=== PATIENT | female | born 1955 | race Two or more races ===

== ENCOUNTER 2019-08-29 23:20 | Emergency (ER) | payer SELFPAY ==
[2019-08-29] MEDS ORDERED: methylPREDNISolone NA SUCC 125 MG/2 ML VIAL ONE (23:30)
[2019-08-29] MEDS ORDERED: methylPREDNISolone NA SUCC 125 MG/2 ML VIAL IVPUSH ONE (23:49)
--- NOTE | 2019-08-29 23:51 | PDOC ---
History of Present Illness - General Chief Complaint: Allergic Reaction Stated Complaint: ALLERGIC REACTION Time Seen by Provider: 08/29/19 23:49 History Source: Patient - History of Present Illness Initial Comments: 08/30/19 03:30 Ms. Metz is a 64 y/o woman with hx fibroids, HIV (undetectable, followed by Dr. Soliz) presenting with an allergic reaction. She reports eating a miniature [employer] candy bar at home when she developed upper lip swelling, eyelid swelling, and hives on her bilateral upper extremities. She denies any shortness of breath or difficulty breathing. At home she took 50 mg benadryl, and presented to the ED when her symptoms did not resolve. She denies any known food allergies, and has had no recent changes in medications. She denies any nausea, vomiting, chills, or pain anywhere. Past History - Past Medical History Allergies/Adverse Reactions: Allergies Allergy/AdvReac Type Severity Reaction Status Date / Time Penicillins Allergy Verified 08/30/19 01:50 Home Medications: Ambulatory Orders Emtricitab/Rilpivirine/Tenofov [Complera Tablet -] 1 each PO DAILY #30 tablet Levothyroxine [Synthroid -] 150 mcg PO DAILY #30 tablet 08/03/18 Cefuroxime Axetil [Ceftin -] 500 mg PO Q12H #14 tablet 12/24/18 Emtricitab/Rilpivirine/Tenofov [Complera -] 1 each PO DAILY #30 tablet 02/08/19 Levothyroxine [Synthroid -] 150 mcg PO DAILY #30 tablet 02/08/19 Anemia: No Asthma: Yes (1 episode) Cancer: No Cardiac Disorders: No CVA: Yes (09/2015 hosp'd x 2 days, had slurred speech, all resolved) COPD: No CHF: No Dementia: No Diabetes: No GI Disorders: No Disorders: No HTN: No Hypercholesterolemia: No Liver Disease: No Seizures: No Thyroid Disease: Yes (hx goiter, stable on meds) - Psycho Social/Smoking Cessation Hx Smoking History: Never smoked Have you smoked in the past 12 months: No Number of Cigarettes Smoked Daily: 0 If you are a former smoker, when did you quit?: over 40 years ago Hx Alcohol Use: Yes (infrequent social ) Drug/Substance Use Hx: No Hx Substance Use Treatment: No Review of Systems - Review of Systems Able to Perform ROS?: Yes Comments:: 08/30/19 03:35 ROS: GENERAL/CONSTITUTIONAL: No fever or chills. No weakness. HEAD, EYES, EARS, NOSE AND THROAT: Bilateral eyelid swelling. Upper lip swelling. No change in vision. No ear pain or discharge. No sore throat. CARDIOVASCULAR: No chest pain or shortness of breath RESPIRATORY: No cough, wheezing, or hemoptysis. GASTROINTESTINAL: No nausea, vomiting, diarrhea or constipation. GENITOURINARY: No dysuria, frequency, or change in urination. MUSCULOSKELETAL: No joint or muscle swelling or pain. No neck or back pain. SKIN: Hives on bilateral upper extremities. NEUROLOGIC: No headache, vertigo, loss of consciousness, or change in strength/ sensation. ENDOCRINE: No increased thirst. No abnormal weight change HEMATOLOGIC/LYMPHATIC: No anemia, easy bleeding, or history of blood clots. ALLERGIC/IMMUNOLOGIC: Hives *Physical Exam - Physical Exam Comments: 08/30/19 03:37 PE: GENERAL: Awake, alert, and fully oriented, in no acute distress HEAD: Upper lip swelling. No signs of trauma, normocephalic, atraumatic EYES: Bilateral eyelid swelling. PERRLA, EOMI, sclera anicteric, conjunctiva clear ENT: Auricles normal inspection, hearing grossly normal, nares patent, oropharynx clear without exudates. Moist mucosa NECK: Normal ROM, supple, no lymphadenopathy, JVD, or masses LUNGS: No distress, speaks full sentences, clear to auscultation bilaterally HEART: Regular rate and rhythm, normal S1 and S2, no murmurs, rubs or gallops, peripheral pulses normal and equal bilaterally. ABDOMEN: Soft, nontender, normoactive bowel sounds. No guarding, no rebound. No masses EXTREMITIES : Normal inspection, Normal range of motion, no edema. No clubbing or cyanosis NEUROLOGICAL: Cranial nerves II through XII grossly intact. Normal speech, normal gait, no focal sensorimotor deficits SKIN: Mild hives appreciated on bilateral forearms. Warm, Dry, normal turgor. ED Treatment Course - Medications Given in the ED: ED Medications Discontinued Medications Generic Name Dose Route Start Last Admin Trade Name Freq PRN Reason Stop Dose Admin Methylprednisolone Sodium Succinate 125 mg 08/29/19 23:49 08/29/19 23:51 Solu-Medrol - IVPUSH 08/29/19 23:50 125 mg ONCE ONE Administration Medical Decision Making - Medical Decision Making 08/30/19 03:39 64 F p/w allergic reaction after ingesting candy bar, no difficulty breathing or airway compromise, consistent with allergic reaction. Took 50 mg benadryl at home before presenting to ED. Plan: Epinephrine Prednisone Serial reassessment Dispo: Home pending reassessment --- Repeat physical exam - lungs CTAB, swelling significantly improved. Plan for discharge home, close PCP follow up. Discharge - Discharge Information Problems reviewed: Yes Clinical Impression/Diagnosis: Allergic reaction Qualifiers: Encounter type: initial encounter Qualified Code(s): T78.40XA - Allergy, unspecified, initial encounter Condition: Stable Disposition: HOME - Admission No - Follow up/Referral - Patient Discharge Instructions Patient Printed Discharge Instructions: DI for General Allergic Reactions Additional Instructions: You were seen in the emergency department after an allergic reaction. We gave epinephrine and steroids to help your symptoms, and the swelling improved. Please follow up with your primary care provider as soon as possible, in the next seven days. Please return to the emergency department if you develop difficulty breathing, chest pain, or if you develop any other symptoms that are concerning to you. - Post Discharge Activity Work/Back to School Note: Back to Work
[2019-08-29] MEDS ORDERED: EPINEPHrine 1:1,000 0.3 MG/0.3 ML SYR IM ONE (23:52)
[2019-08-29 23:59] VITALS: TEMP 97.3; BMI 21.5
--- NOTE | 2019-08-30 00:23 | PDOC ---
Documentation entered by Mariah Haq SCRIBE, acting as scribe for Sirena Subramanian MD. Sirena Subramanian MD: This documentation has been prepared by the Severino de la vega Brenda, SCRIBE, under my direction and personally reviewed by me in its entirety. I confirm that the documentation accurately reflects all work, treatment, procedures, and medical decision making performed by me. Attending Attestation - Resident Resident Name: Gianluca Gillette - ED Attending Attestation I have performed the following: I have examined & evaluated the patient, The case was reviewed & discussed with the resident, I agree w/resident's findings & plan, Exceptions are as noted - HPI HPI: 08/29/19 23:55 The patient is a 64 year old female, with a significant PMH of fibroids, goiter and now hypothyroidism, who presents to the emergency department with swollen lips and eyelids, which she notes to be an allergic reaction. Patient says that she does not have any known allergies, and the last thing she ate was a chocolate bar. She also notes taking 50 of benadryl. The patient denies chest pain, shortness of breath, headache and dizziness. Denies fever, chills, nausea, vomiting, diarrhea and constipation. Denies dysuria, frequency, urgency and hematuria. Allergies: Penicillin Past surgical history: Partial hysterectomy, tonsillectomy and partial thyroidectomy Social history: Social alcohol use PCP: Pauline Santiago - Physicial Exam PE: 08/29/19 23:58 GENERAL: 64 yo female p/w maxillary lip angioedema, b/l eyelid swelling and hives HEENT: Normocephalic, atraumatic. PERRL, EOM intact. CARDIOVASCULAR: Normal S1, S2. Regular rate and rhythm. PULMONARY: Clear to auscultation bilaterally. ABDOMEN: Soft, non-distended, non-tender. EXTREMITIES: Normal ROM in all four extremities. No gross deformities. SKIN: (+) scattered hives Warm, dry. NEUROLOGICAL: No focal neurological deficits. 08/30/19 00:14 - Medical Decision Making 08/30/19 00:16 64 yo female who ate a chocolate bar and then dev facial swelling and hives . She took benadryl 50 mg po at home prior to arrival. She is not aware of any food allergies ,she is allergic to penicillin PMH HIV>20 years ,goiter and had subtotal thyroidectomy meds she takes complera and she has been on this med for years lungs are cta b/l imp allergies plan pt received IV steroids and epi /bendryl at home, will reassess 08/30/19 02:33 pt feels much better She never felt her throat was closing and never had any wheezing d/c home
[2019-08-30] MEDS ORDERED: EPINEPHrine 1:1,000 1 MG/1 ML - 30ML VIAL (INJECTION) SQ STA (00:48)
[2019-08-30] MEDS ORDERED: EPINEPHrine/PF 1 MG/1 ML (1:1,000) AMPULE ONE (00:59)
[2019-08-30] MEDS ORDERED: AZITHROMYCIN 250 MG TABLET ONE (01:10)
[2019-08-30] MEDS ORDERED: cefTRIAXone SODIUM 1 GM VIAL ONE (01:10)
[2019-08-30 02:19] VITALS: BP 135/79; PULSE 70
== END 2019-08-30 04:13 | disposition home or self-care (01) ==
LOC: JER 23:20
PROC: 3E0333Z Introduction of Anti-inflammatory into Peripheral Vein, Percutaneous Approach (ICD-10-PCS; principal; 2019-08-29)
PROC: 3E023GC Introduction of Other Therapeutic Substance into Muscle, Percutaneous Approach (ICD-10-PCS; 2019-08-29)
DX: T78.1XXA Other adverse food reactions, not elsewhere classified, initial encounter (principal); H02.849 Edema of unspecified eye, unspecified eyelid; X58.XXXA Exposure to other specified factors, initial encounter; E04.9 Nontoxic goiter, unspecified; Z21 Asymptomatic human immunodeficiency virus [HIV] infection status; Z86.73 Personal history of transient ischemic attack (TIA), and cerebral infarction without residual deficits; Z88.0 Allergy status to penicillin; Z87.09 Personal history of other diseases of the respiratory system
CPT/HCPCS: 99282-25

== ENCOUNTER 2020-07-03 18:40 | Emergency (ER) | payer BC ==
[2020-07-03 19:01] VITALS: TEMP 98.1; BMI 24.7
[2020-07-03] MEDS ORDERED: ACETAMINOPHEN 1000 MG/100 ML VIAL (NON FORMULARY) IVPB ONE (19:13)
--- NOTE | 2020-07-03 19:18 | PDOC ---
History of Present Illness <Kyle Norton - Last Filed: 07/03/20 20:52> - General History Source: Patient Exam Limitations: No Limitations - History of Present Illness Initial Comments: 07/03/20 20:34 HPI: This is a 64 y/o female PMH HIV+ on Biktarvi (undetectable), CVA (2014) on ASA, hyperthyroid s/p thyroidectomy presenting the ED following a fall earlier today. Per the patient, she mis-stepped entering a restaurant and fell forward onto her right shoulder and knees. She denies hitting her head or LOC. She denies any preceding chest pain, SOB, lightheadedness, dizziness, numbnes or weakness. ROS: GENERAL/CONSTITUTIONAL: No fever/chills. No weakness. HEAD, EYES, EARS, NOSE AND THROAT: No change in vision. No ear pain or discharge. No sore throat. CARDIOVASCULAR: No chest pain or shortness of breath. RESPIRATORY: No cough, wheezing, or hemoptysis. GASTROINTESTINAL: No nausea, vomiting, diarrhea or constipation. GENITOURINARY: No dysuria, frequency, or change in urination. MUSCULOSKELETAL: Yes right arm and shoulder pain SKIN: Abrasion to left knee NEUROLOGIC: No headache, loss of consciousness, or change in strength/sensation. HEMATOLOGIC/LYMPHATIC: On ASA PMH: CVA 2014, hyperthyroid s/p thyroidectomy, HIV + PSx: Partial hysterectomy Social Hx: Denied etoh, tobacco Meds: Biktarvi, synthroid Allergies: Penicillins PE: GENERAL: Awake, alert, and fully oriented. Patient is in bed, crying, holding her right arm. HEAD: No signs of trauma EYES: PERRL, EOMI, NECK: Normal ROM, supple, no lymphadenopathy, JVD, or masses LUNGS: Breath sounds equal, clear to auscultation bilaterally. No wheezes, and no crackles HEART: Regular rate and rhythm, normal S1 and S2, no murmurs, rubs or gallops. Pulses present bilaterally in upper and lower extremities. ABDOMEN: Soft, nontender, normoactive bowel sounds. No guarding, no rebound. No masses EXTREMITIES: Limited ROM in right arm. ROM intact in other extremities. NEUROLOGICAL: Cranial nerves II through XII grossly intact. Normal speech, normal gait. Strength and sensation intact bilaterally in upper and lower extremities. SKIN: Patient has abrasion to left knee. MDM:This is a 64 y/o female PMH HIV+ on Biktarvi undetectable, CVA (2014) on ASA, hyperthyroid s/p thyroidectomy presenting the ED following a fall earlier today. 07/03/20 21:03 Patient had witnessed fall, no LOC, did not hit head R. humeral fracture - pulses intact in right hand - No numbness or weakness in r. hand - Patients right arm placed in sling - Fentanyl and IV acetaminophen in ED, naproxen at home - Patient understands return precautions <Paulina Simon - Last Filed: 07/03/20 21:06> - General Chief Complaint: Injury Stated Complaint: FALL Time Seen by Provider: 07/03/20 19:18 Past History <Kyle Norton - Last Filed: 07/03/20 20:52> - Medical History Anemia: No Asthma: Yes (1 episode) Cancer: No Cardiac Disorders: No CVA: Yes (09/2015 hosp'd x 2 days, had slurred speech, all resolved) COPD: No CHF: No Dementia: No Diabetes: No GI Disorders: No Disorders: No HTN: No Hypercholesterolemia: No Liver Disease: No Seizures: No Thyroid Disease: Yes (hx goiter, stable on meds) - Reproductive History Is Patient Now?: No - Psycho-Social/Smoking History Smoking History: Never smoked Have you smoked in the past 12 months: No Number of Cigarettes Smoked Daily: 0 If you are a former smoker, when did you quit?: over 40 years ago Information on smoking cessation initiated: No - Substance Abuse Hx (Audit-C & DAST Scrn) How often the patient has a drink containing alcohol: Never Score: In Men: 4 or > Positive; In Women: 3 or > Positive: 0 Screen Result (Pos requires Nsg. Audit-10AR): Negative In the last yr the pt used illegal drug/Rx for NonMed reason: No Score: Yes response is considered Positive: 0 Screen Result (Positive result requires Nsg. DAST-10): Negative <Paulina Simon - Last Filed: 07/03/20 21:06> - Medical History Allergies/Adverse Reactions: Allergies Allergy/AdvReac Type Severity Reaction Status Date / Time Penicillins Allergy Verified 07/03/20 19:01 Home Medications: Ambulatory Orders Emtricitab/Rilpivirine/Tenofov [Complera Tablet -] 1 each PO DAILY #30 tablet 08/03/18 Levothyroxine [Synthroid -] 150 mcg PO DAILY #30 tablet 08/03/18 Cefuroxime Axetil [Ceftin -] 500 mg PO Q12H #14 tablet 12/24/18 Emtricitab/Rilpivirine/Tenofov [Complera -] 1 each PO DAILY #30 tablet 02/08/19 Levothyroxine [Synthroid -] 150 mcg PO DAILY #30 tablet 02/08/19 Methylprednisolone [Medrol Dose John] 4 mg PO ASDIR #21 tablet 08/30/19 Naproxen 500 mg PO BID 7 Days #14 tablet 07/03/20 *Physical Exam - Vital Signs Last Vital Signs Temp Pulse Resp BP Pulse Ox 98.1 F 84 16 122/80 96 07/03/20 18:40 07/03/20 18:40 07/03/20 18:40 07/03/20 18:40 07/03/20 18:40 <Kyle Norton - Last Filed: 07/03/20 20:52> - Vital Signs Last Vital Signs Temp Pulse Resp BP Pulse Ox 98.1 F 84 16 122/80 96 07/03/20 18:40 07/03/20 18:40 07/03/20 18:40 07/03/20 18:40 07/03/20 18:40 <Paulina Simon - Last Filed: 07/03/20 21:06> ED Treatment Course - Medications Given in the ED: ED Medications Discontinued Medications Generic Name Dose Route Start Last Admin Trade Name Melisa PRCindy Reason Stop Dose Admin Acetaminophen 1,000 mg 07/03/20 19:13 07/03/20 19:32 Ofirmev Injection - IVPB 07/03/20 19:14 1,000 mg ONCE ONE Administration Fentanyl 50 mcg 07/03/20 19:13 07/03/20 19:32 Sublimaze Injection - IVPUSH 07/03/20 19:14 50 mcg ONCE ONE Administration <Kyle Norton - Last Filed: 07/03/20 20:52> Discharge <Kyle Norton - Last Filed: 07/03/20 20:52> - Discharge Information Problems reviewed: Yes - Admission No <Paulina Simon - Last Filed: 07/03/20 21:06> - Discharge Information Clinical Impression/Diagnosis: Abrasion, left knee, initial encounter Humeral fracture Qualifiers: Encounter type: initial encounter Humerus Location: surgical neck Fracture type: closed Fracture morphology: unspecified fracture morphology Fracture alignment: nondisplaced Laterality: right Qualified Code(s): S42.214A - Unspecified nondisplaced fracture of surgical neck of right humerus, initial encounter for closed fracture Condition: Stable Disposition: HOME - Additional Discharge Information Prescriptions: Naproxen 500 mg PO BID 7 Days #14 tablet - Follow up/Referral Referrals: Bao Hager MD [Staff Physician] - Tyron Sharp MD [Staff Physician] - - Patient Discharge Instructions Patient Printed Discharge Instructions: How to Use a Sling Additional Instructions: Please return to the ED with any new or concerning symptoms. Please return if you experience weakness, tingling, or numbness in your extremity. We gave you a referral for two orthopedists. Please follow-up with orthopedics in the next 2-3 days. I have sent a prescription for a pain medication called Naproxen to your pharmacy. Take as directed on the package insert. Do not exceed the recommended dosage. Do not take with other NSAID medications such as Ibuprofen, Advil, or Motrin. Start with taking the Naproxen every 12 hours. If the pain becomes worse then add Tylenol (Acetaminophen) between doses of Naproxen. An example schedule is as follows: 9:00 am Naproxen 12:00 pm 1000mg Tylenol 6:00 pm 1000mg Tylenol 9:00 pm Naproxen 12:00 am 1000mg Tylenol etc. - Post Discharge Activity Work/Back to School Note: Back to Work
[2020-07-03] MEDS ORDERED: ACETAMINOPHEN INJECTION 100 ML IVPB ONE (19:24)
--- NOTE | 2020-07-03 19:29 | PDOC ---
Attending Attestation - Resident Resident Name: Tod Simonana - ED Attending Attestation I have performed the following: I have examined & evaluated the patient, The case was reviewed & discussed with the resident, I agree w/resident's findings & plan - HPI HPI: 07/03/20 19:37 see resident hpi - Physicial Exam PE: 07/03/20 19:37 see resident exam - Medical Decision Making 07/03/20 19:37 64-year-old female status post mechanical fall with pain to the right shoulder and abrasions to the left knee X-ray shows a nondisplaced proximal humerus fracture involving the humeral head nvm in tact Plan for DC with sling and outpatient orthopedic follow-up Patient does live with family members who can assist in regards to left knee patient states that her joint feels normal other than what she is calling abrasions and does not feel she needs an x-ray Discharge - Discharge Information Problems reviewed: Yes Clinical Impression/Diagnosis: Humeral fracture, Abrasion, left knee, initial encounter - Follow up/Referral - Patient Discharge Instructions - Post Discharge Activity
[2020-07-03 21:11] VITALS: BP 120/76; PULSE 80
== END 2020-07-03 21:11 | disposition home or self-care (01) ==
LOC: JER 18:40
PROC: 3E033KZ Introduction of Other Diagnostic Substance into Peripheral Vein, Percutaneous Approach (ICD-10-PCS; principal; 2020-07-03)
PROC: 3E033GC Introduction of Other Therapeutic Substance into Peripheral Vein, Percutaneous Approach (ICD-10-PCS; 2020-07-03)
DX: S42.214A Unspecified nondisplaced fracture of surgical neck of right humerus, initial encounter for closed fracture (principal); S80.212A Abrasion, left knee, initial encounter
CPT/HCPCS: 73030-TC-RT-FY; 73060-TC-RT-FY; 99284-25; J0131

== ENCOUNTER 2022-06-19 15:15 | Emergency (ER) | payer BC ==
[2022-06-19 15:32] VITALS: BP 141/80; PULSE 73; TEMP 98.3; BMI 22.8
[2022-06-19] MEDS ORDERED: LIDOCAINE HCL 1%, 10 MG/ML (20ML VIAL) ONE (15:46)
[2022-06-19] MEDS ORDERED: DIPHTH,PERTUSS(ACELL),TET 0.5 ML DISP.SYRIN IM ONE ×2 (16:22→16:24)
== END 2022-06-19 16:35 | disposition home or self-care (01) ==
LOC: JERFT 15:15
PROC: 0HQKXZZ Repair Right Lower Leg Skin, External Approach (ICD-10-PCS; principal; 2022-06-19)
PROC: 3E0234Z Introduction of Serum, Toxoid and Vaccine into Muscle, Percutaneous Approach (ICD-10-PCS; 2022-06-19)
DX: S91.012A Laceration without foreign body, left ankle, initial encounter (principal)
CPT/HCPCS: 90715; 99284-25

== ENCOUNTER 2022-06-29 11:43 | Emergency (ER) | payer BC ==
[2022-06-29 12:15] VITALS: BP 129/74; PULSE 72; RESP 19; TEMP 98.6; BMI 22.6
== END 2022-06-29 12:38 | disposition home or self-care (01) ==
LOC: JER 11:43
DX: Z48.02 Encounter for removal of sutures (principal)
CPT/HCPCS: 99281-25

== ENCOUNTER 2022-09-01 10:16 | Emergency (ER) | payer BC ==
[2022-09-01 10:37] VITALS: BP 146/78; PULSE 55; RESP 18; TEMP 97.8; BMI 23.0
== END 2022-09-01 12:11 | disposition home or self-care (01) ==
LOC: JER 10:16
DX: Z71.3 Dietary counseling and surveillance (principal)
CPT/HCPCS: 82962; 99283-25

== ENCOUNTER 2022-09-29 16:10 | Observation (INO) | payer BC ==
[2022-09-29 16:36] VITALS: BP 145/83; PULSE 66; RESP 18; TEMP 98.1; BMI 23.6
[2022-09-29 19:12] LABS: BASO % 1.4 % (0-2.0); EOS % 7.5 % (0-4.5); HEMATOCRIT 39.5 % (32.4-45.2); HEMOGLOBIN 13.8 GM/dL (10.7-15.3); LYMPH % 24.1 % (8-40); MCH 35.6 pg (25.7-33.7); MEAN CELL VOLUME 101.7 fl (80-96); MEAN PLT VOLUME 8.6 fl (7.5-11.1); MONO % 11.5 % (3.8-10.2); NEUT % 55.5 % (42.8-82.8); PLATELET COUNT 217 10^3/uL (134-434); RBC 3.88 M/mm3 (3.60-5.2); RDW 12.7 % (11.6-15.6); WHITE BLOOD COUNT 6.9 K/mm3 (4.0-10.0)
[2022-09-29 19:30] LABS: ALBUMIN 3.8 g/dl (3.4-5.0); BLOOD UREA NITROGEN 23.9 mg/dL (7-18)
[2022-09-29 19:33] LABS: CREATININE 0.9 mg/dL (0.55-1.3)
[2022-09-29 19:35] LABS: BILIRUBIN,TOTAL 0.9 mg/dL (0.2-1); TOT PROT 7.5 g/dl (6.4-8.2)
[2022-09-29] MEDS ORDERED: DOCUSATE SODIUM 100 MG CAPSULE (FP) PO PRN (20:38)
[2022-09-29] MEDS ORDERED: ACETAMINOPHEN 325 MG TABLET (FP) PO PRN (20:38)
== END 2022-09-29 21:22 | disposition left against medical advice (07) ==
LOC: JER 16:10 → JERBED 19:45
PROVIDERS: ADMIT Internal Medicine; ATTEND Internal Medicine
DX: B20 Human immunodeficiency virus [HIV] disease (principal); R06.02 Shortness of breath; I10 Essential (primary) hypertension; E78.5 Hyperlipidemia, unspecified; Z86.16 Personal history of COVID-19; E11.9 Type 2 diabetes mellitus without complications
CPT/HCPCS: 36415; 71046-TC-FY; 80053; 84484; 85025; 85379; 93005; 93010; 99285-25; G0378